=== PATIENT | female | born 1985 | race American Indian/Alaskan Native ===

== ENCOUNTER 2016-07-31 03:31 | Emergency (ER) | payer MEDICARE ==
[2016-07-31 03:48] VITALS: BP 146/89
[2016-07-31 04:31] LABS: Basophils % (Auto) 0.5 % (0.0-1.8); Hematocrit 39.1 % (30.3-42.9); Hemoglobin 12.7 gm/dl (10.1-14.3); Mean Corpuscular HGB Conc 33 % (30-34); Mean Corpuscular Hemoglobin 27 pg (28-32); Mean Corpuscular Volume 84 fl (79-97); Platelet Count 271 K/mm3 (140-440); Red Blood Count 4.67 M/mm3 (3.65-5.03); Red Cell Distribution Width 13.7 % (13.2-15.2); White Blood Count 6.3 K/mm3 (4.5-11.0)
[2016-07-31 04:41] LABS: Anion Gap 16 mmol/L; Blood Urea Nitrogen 9 mg/dL (7-17); Calcium 9.1 mg/dL (8.4-10.2); Carbon Dioxide 26 mmol/L (22-30); Glucose 93 mg/dL (65-100); Potassium 4.1 mmol/L (3.6-5.0); Sodium 142 mmol/L (137-145)
--- NOTE | 2016-07-31 14:58 | ED Elopement Review ---
ED Pt Elopement review - Results review Lab results: Laboratory Tests 07/31/16 07/31/16 04:09 04:09 WBC 6.3 RBC 4.67 Hgb 12.7 Hct 39.1 MCV 84 MCH 27 L MCHC 33 RDW 13.7 Plt Count 271 Lymph % (Auto) 45.0 H [place] % (Auto) 9.3 H Eos % (Auto) 1.0 Baso % (Auto) 0.5 Lymph # 2.8 [place] # 0.6 Eos # 0.1 Baso # 0.0 Seg Neutrophils % 44.2 Seg Neutrophils # 2.8 Sodium 142 Potassium 4.1 Chloride 104.0 Carbon Dioxide 26 Anion Gap 16 BUN 9 Creatinine 0.6 L Estimated GFR > 60 BUN/Creatinine Ratio 15.00 Glucose 93 Calcium 9.1 Troponin T < 0.010 - Call Back decision Pt Call Back Decision: No action required
== END 2016-07-31 04:10 | disposition left against medical advice (07) ==
LOC: ED 03:31
DX: R07.9 Chest pain, unspecified (principal); Z53.21 Procedure and treatment not carried out due to patient leaving prior to being seen by health care provider
CPT/HCPCS: 36415; 80048; 84484; 85025; 93005; 93010